=== PATIENT | male | born 1965 | race Caucasian/White ===

== ENCOUNTER 2018-01-02 06:16 | Emergency (ER) | payer OTHER ==
--- NOTE | 2018-01-02 08:21 | ER ---
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 pt stated he has tried multiple OTC medications with no relief. pt took Aleve at 0515 this morning. Transition of care: patient was not received from another setting of care. Onset of symptoms is unknown. Care prior to arrival: None. 06:30 Method Of Arrival: Ambulatory ak1 06:30 Acuity: ASHLEY 4 ak1 Triage Assessment: 06:33 General: Appears in no apparent distress. Behavior is cooperative. Pain: Complains of ak1 pain in throat and body aches. EENT: Nares are clear. Neuro: No deficits noted. Cardiovascular: No deficits noted. Respiratory: No deficits noted. GI: No signs and/or symptoms were reported involving the gastrointestinal system. : No signs and/or symptoms were reported regarding the genitourinary system. Derm: No signs and/or symptoms reported regarding the dermatologic system. 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 Historical: - Allergies: 06:32 Latex, Natural Rubber; ak1 - Home Meds: 06:32 victoza daily [Active]; metformin 1,000 mg Oral tab 1 tab 2 times per day [Active]; ak1 - PMHx: 06:32 Diabetes - NIDDM; ak1 06:33 Hypertension; ak1 - PSHx: 06:32 Tonsillectomy; ak1 - Immunization history:: Adult Immunizations unknown. - Social history:: Smoking status: Patient/guardian denies using tobacco. Screenin:35 Abuse screen: Denies threats or abuse. Denies injuries from another. Nutritional ak1 screening: No deficits noted. Tuberculosis screening: No symptoms or risk factors identified. Fall Risk None identified. Assessment: 06:35 Respiratory: Airway is patent Respiratory effort is even, Breath sounds are clear. ak1 06:35 EENT: Throat with gag reflex present. ak1 06:35 Reassessment: Patient appears in no apparent distress at this time. No changes from ak1 previously documented assessment. see triage assessment. 07:20 Reassessment: Patient appears in no apparent distress at this time. Patient and/or family updated on plan of care and expected duration. Pain level reassessed. Patient is alert, oriented x 3, equal unlabored respirations, skin warm/dry/pink. General: Appears in no apparent distress. comfortable, Behavior is calm, cooperative, appropriate for age. Pain: Complains of pain in GENERALIZED BODY ACHES Pain currently is 8 out of 10 on a pain scale. Neuro: Level of Consciousness is awake, alert, obeys commands, Oriented to person, place, time, situation. Cardiovascular: Heart tones S1 S2 present Pulses are all present. Edema is absent. GI: No signs and/or symptoms were reported involving the gastrointestinal system. Abdomen is round non-distended, obese, Bowel sounds present X 4 quads. : No signs and/or symptoms were reported regarding the genitourinary system. EENT: Nares are clear PT [id number] CONGESTION. Throat is clear. Derm: Skin is pink, warm \T\ dry. Musculoskeletal: Circulation, motion, and sensation intact. Capillary refill < 3 seconds, in bilateral fingers. toes. PT REPORTS GENERALIZED BODY ACHES. 08:51 Reassessment: Patient appears in no apparent distress at this time. No changes from previously documented assessment. Patient and/or family updated on plan of care and expected duration. Pain level reassessed. Patient is alert, oriented x 3, equal unlabored respirations, skin warm/dry/pink. Vital Signs: 06:33 BP 145 / 92; Pulse 99; Resp 20; Temp 98.5(O); Pulse Ox 97% on R/A; Weight 102.06 kg ak1 (R); Height 5 ft. 6 in. (167.64 cm) (R); Pain 10/10; 07:20 BP 136 / 81; Pulse 96; Pulse Ox 99% on R/A; ch 08:51 BP 118 / 76; Pulse 80; Resp 16; Temp 98.3; Pulse Ox 99% on R/A; Pain 6/10; ch 06:33 Body Mass Index 36.32 (102.06 kg, 167.64 cm) [facility] ED Course: 06:20 Patient arrived in ED. es 06:21 Jian Welch MD is Private Physician. es 06:27 Chay Strickland PA is PHCP. jr8 06:27 Misbah Cee MD is Attending Physician. jr8 06:30 Mattie Lewis, [place] is Primary Nurse. ak1 06:31 Triage completed. ak1 06:33 Arm band placed on Patient placed in an exam room, on a stretcher, on pulse oximetry, ak1 Patient notified of wait time. 06:35 Patient has correct armband on for positive identification. Bed in low position. Call ak1 light in reach. Side rails up X 1. Pulse ox on. NIBP on. 06:59 Primary Nurse role handed off by Mattie Lewis, [place] ch 06:59 Barbara Dumont, [place] is Primary Nurse. ch 07:20 No apparent distress. Resting quietly. ch 07:20 No provider procedures requiring assistance completed. Patient did not have IV access ch during this emergency room visit. 07:25 Influenza Screen (a \T\ B) Sent. ch 07:50 X-ray completed. Portable x-ray completed in exam room. Patient tolerated procedure jb2 well. 08:16 XRAY Chest (1 view) In Process Unspecified. EDMS 08:20 Jian Welch MD is Referral Physician. jr8 Administered Medications: No medications were administered Point of Care Testing: Blood Glucose: 07:20 Blood Glucose: 279 mg/dL; Ranges: Outcome: 08:20 Discharge ordered by . jr8 08:50 Discharged to home ambulatory, with family. 08:50 Condition: stable 08:50 Discharge instructions given to patient, Instructed on discharge instructions, follow up and referral plans. no drinking with medication, no driving heavy equipment, medication usage, Demonstrated understanding of instructions, follow-up care, medications, Prescriptions given X 3. 08:51 Patient left the ED. ch Signatures: Dispatcher [employer] EDMS Barbara Dumont, [place] RN Criss Doshi Jesse jb2 Chay Strickland PA PA jr8 Mattie Lewis, [place] RN ak1
--- NOTE | 2018-01-02 08:21 | EDPHYS ---
Physician Documentation [facility] Name: Eddie Thomas Age: 52 yrs Sex: Male : 1965 Arrival Date: 01/02/2018 Time: 06:20 Bed 6 Private MD: Jian Welch ED Physician Misbah Cee HPI: 01/02 07:59 This 52 yrs old Male presents to ER via Ambulatory with complaints of Fever, jr8 Sore Throat, bODY ACHE, Sinus Congestion. 07:59 The patient reports fever, not measured (subjective). Onset: The symptoms/episode jr8 began/occurred gradually, 3 week(s) ago. Modifying factors: there are no obvious modifying factors. Associated signs and symptoms: Pertinent positives: chills, cough, shortness of breath, sore throat. Severity of symptoms: At their worst the symptoms were mild in the emergency department the symptoms are unchanged. The patient has not experienced similar symptoms in the past. The patient has not recently seen a physician. Hast tried OTC medication with some relief but keeps coming back . Historical: - Allergies: 06:32 Latex, Natural Rubber; ak1 - Home Meds: 06:32 victoza daily [Active]; metformin 1,000 mg Oral tab 1 tab 2 times per day [Active]; ak1 - PMHx: 06:32 Diabetes - NIDDM; ak1 06:33 Hypertension; ak1 - PSHx: 06:32 Tonsillectomy; ak1 - Immunization history:: Adult Immunizations unknown. - Social history:: Smoking status: Patient/guardian denies using tobacco. ROS: 07:59 Eyes: Negative for injury, pain, redness, and discharge, Neck: Negative for injury, jr8 pain, and swelling, Cardiovascular: Negative for chest pain, palpitations, and edema, Abdomen/GI: Negative for abdominal pain, nausea, vomiting, diarrhea, and constipation, Back: Negative for injury and pain, MS/Extremity: Negative for injury and deformity, Skin: Negative for injury, rash, and discoloration, Neuro: Negative for headache, weakness, numbness, tingling, and seizure. 07:59 Constitutional: Positive for body aches, chills, fever. 07:59 ENT: Positive for sore throat, Negative for drainage from ear(s), ear pain, nasal discharge, rhinorrhea, sinus congestion, sinus pain. 07:59 Respiratory: Positive for cough, Negative for dyspnea on exertion, shortness of breath, sputum production, wheezing. Exam: 07:59 Eyes: Pupils equal round and reactive to light, extra-ocular motions intact. Lids and jr8 lashes normal. Conjunctiva and sclera are non-icteric and not injected. Cornea within normal limits. Periorbital areas with no swelling, redness, or edema. ENT: Nares patent. No nasal discharge, no septal abnormalities noted. Tympanic membranes are normal and external auditory canals are clear. Oropharynx with no redness, swelling, or masses, exudates, or evidence of obstruction, uvula midline. Mucous membranes moist. Neck: Trachea midline, no thyromegaly or masses palpated, and no cervical lymphadenopathy. Supple, full range of motion without nuchal rigidity, or vertebral point tenderness. No Meningismus. Cardiovascular: Regular rate and rhythm with a normal S1 and S2. No gallops, murmurs, or rubs. Normal PMI, no JVD. No pulse deficits. Respiratory: Lungs have equal breath sounds bilaterally, clear to auscultation and percussion. No rales, rhonchi or wheezes noted. No increased work of breathing, no retractions or nasal flaring. Abdomen/GI: Soft, non-tender, with normal bowel sounds. No distension or tympany. No guarding or rebound. No evidence of tenderness throughout. Back: No spinal tenderness. No costovertebral tenderness. Full range of motion. Skin: Warm, dry with normal turgor. Normal color with no rashes, no lesions, and no evidence of cellulitis. MS/ Extremity: Pulses equal, no cyanosis. Neurovascular intact. Full, normal range of motion. Neuro: Awake and alert, GCS 15, oriented to person, place, time, and situation. Cranial nerves II-XII grossly intact. Motor strength 5/5 in all extremities. Sensory grossly intact. Cerebellar exam normal. Normal gait. Vital Signs: 06:33 BP 145 / 92; Pulse 99; Resp 20; Temp 98.5(O); Pulse Ox 97% on R/A; Weight 102.06 kg ak1 (R); Height 5 ft. 6 in. (167.64 cm) (R); Pain 10/10; 07:20 BP 136 / 81; Pulse 96; Pulse Ox 99% on R/A; ch 08:51 BP 118 / 76; Pulse 80; Resp 16; Temp 98.3; Pulse Ox 99% on R/A; Pain 6/10; ch 06:33 Body Mass Index 36.32 (102.06 kg, 167.64 cm) ak1 MDM: 06:27 Patient medically screened. jr8 08:19 Data reviewed: vital signs, nurses notes, lab test result(s), radiologic studies, plain jr8 films, and as a result, I will discharge patient. Data interpreted: Pulse oximetry: on room air is 99 %. Interpretation: normal. Counseling: I had a detailed discussion with the patient and/or guardian regarding: the historical points, exam findings, and any diagnostic results supporting the discharge/admit diagnosis, lab results, radiology results, the need for outpatient follow up, a family practitioner, to return to the emergency department if symptoms worsen or persist or if there are any questions or concerns that arise at home. 01/02 06:55 Order name: Influenza Screen (a \T\ B); Complete Time: 07:43 jr8 01/02 06:55 Order name: XRAY Chest (1 view) jr8 01/02 06:56 Order name: Glucose Level; Complete Time: 07:25 jr8 Administered Medications: No medications were administered Point of Care Testing: Blood Glucose: 07:20 Blood Glucose: 279 mg/dL; ch Ranges: Critical Glucose Levels:Adult <50 mg/dl or >400 mg/dl <40 mg/dl or >180 mg/dl Disposition: 01/03 00:21 Co-signature as Attending Physician, Misbah Cee MD I agree with the assessment and tw4 plan of care. Disposition: 01/02/18 08:20 Discharged to Home. Impression: Acute bronchitis, Acute pharyngitis. - Condition is Stable. - Discharge Instructions: Acute Bronchitis, Pharyngitis. - Prescriptions for Prednisone 20 mg Oral Tablet - take 1 tablet by ORAL route once daily for 5 days; 5 tablet. Zithromax Z- Aquiles 250 mg Oral Tablet - take 1 tablet by ORAL route as directed for 5 days Day 1 - take two (2) tablets one time. Day 2, 3, 4 , 5 take one (1) tablet once daily.; 6 tablet. Tessalon Perles 100 mg Oral Capsule - take 1 capsule by ORAL route every 8 hours As needed; 15 capsule. - Medication Reconciliation Form, Thank You Letter, Antibiotic Education, Prescription Opioid Use form. - Work release form (01/02/18 08:51). - Follow up: Jian Welch MD; When: 1 week; Reason: Recheck today's complaints, Continuance of care, Re-evaluation by your physician. - Problem is new. - Symptoms have improved. Signatures: Dispatcher [employer] Barbara Cline, RN RN Chay Strickland PA PA jr8 Mattie Lewis RN RN ak1 Misbah Cee MD MD tw4
[2018-01-02 08:55] VITALS: TEMP 98.5
[2018-01-02 08:56] VITALS: BP 136/81; O2SAT 99
--- NOTE | 2018-01-02 09:15 | RAD REPORT ---
EXAM DESCRIPTION: Micki Single View01/02/2018 8:15 am CLINICAL HISTORY: Cough COMPARISON: 2016 FINDINGS: The lungs appear clear of acute infiltrate. The heart is normal size IMPRESSION: No acute abnormalities displayed
== END 2018-01-02 08:51 | disposition home or self-care (01) ==
LOC: ER 06:16
DX: J20.9 Acute bronchitis, unspecified (principal); J02.9 Acute pharyngitis, unspecified; I10 Essential (primary) hypertension; E11.9 Type 2 diabetes mellitus without complications; Z91.040 Latex allergy status; Z91.048 Other nonmedicinal substance allergy status
CPT/HCPCS: 71045; 82962; 87804; 99284

== ENCOUNTER 2019-10-17 05:13 | Emergency (ER) | payer OTHER ==
[2019-10-17] MEDS ORDERED: NA CHLORIDE 0.9% 1,000 ML ONE (06:09)
[2019-10-17] MEDS ORDERED: ONDANSETRON 4 MG/2 ML VIAL ONE (06:09)
[2019-10-17 06:26] LABS: Absolute Lymphocytes (CBC) 2.5 K/uL (0.7-4.9); Basophils % 0.9 % (0-1.3); Hematocrit 44.8 % (39.6-49.0); Lymphocytes % 46.6 % (15.3-44.8); MPV 8.3 fL (7.6-11.3); RBC Red Blood Cell Count 5.01 M/uL (4.33-5.43)
[2019-10-17 07:10] LABS: ALT/SGPT 34 U/L (12-78); AST/SGOT 21 U/L (15-37); Albumin 3.3 g/dL (3.4-5.0); Alkaline Phosphatase 67 U/L (45-117); BUN Blood Urea Nitrogen 9 mg/dL (7-18); Bicarbonate 26 mmol/L (21-32); Bilirubin Direct < 0.1 mg/dL (0-0.2); Bilirubin Total 0.1 mg/dL (0.2-1.0); Glucose Level 211 mg/dL (74-106); Lipase 538 U/L (73-393); Protein, Total 6.4 g/dL (6.4-8.2); Sodium Level 139 mmol/L (136-145)
[2019-10-17 07:11] LABS: Potassium 4.1 mmol/L (3.5-5.1)
--- NOTE | 2019-10-17 08:01 | EDPHYS ---
Physician Documentation [facility] Name: Eddie Thomas Age: 54 yrs Sex: Male : 1965 Arrival Date: 10/17/2019 Time: 05:16 Bed 20 Private MD: ED Physician Misbah Cee HPI: 10/17 06:14 This 54 yrs old Male presents to ER via Ambulatory with complaints of Chills, jmm Nausea. 06:14 The patient presents to the emergency department with nausea, diarrhea. Onset: The jmm symptoms/episode began/occurred 1 day(s) ago. Possible causes: unknown. The symptoms are aggravated by nothing. Associated signs and symptoms: Pertinent positives: cough, Pertinent negatives: abdominal pain. This is a 54 year old male with a history of dm, htn, that presents to the ED with complaints of cough, diarrhea, fatigue, beginning yesterday. Denies vomiting, abdominal pain, sore throat. . Historical: - Allergies: 05:16 Latex, Natural Rubber; jb4 - Home Meds: 05:16 metformin 1,000 mg Oral tab 1 tab 2 times per day [Active]; jb4 - PMHx: 05:16 Diabetes - NIDDM; Hypertension; ADD/ADHD; jb4 - PSHx: 05:16 Tonsillectomy; jb4 - Immunization history:: Adult Immunizations up to date. - Social history:: Smoking status: Patient reports use of chewing tobacco. Patient uses alcohol, but reports only rare drinking. Patient/guardian denies using street drugs. - Ebola Screening: : No symptoms or risks identified at this time. ROS: 06:14 Cardiovascular: Negative for chest pain, palpitations, and edema. jmm 06:14 Back: Negative for injury and pain, MS/Extremity: Negative for injury and deformity, Skin: Negative for injury, rash, and discoloration, Neuro: Negative for headache, weakness, numbness, tingling, and seizure. 06:14 Constitutional: Positive for body aches, chills, fever. 06:14 Respiratory: Positive for cough. 06:14 Abdomen/GI: Positive for nausea, diarrhea. 06:14 All other systems are negative. Exam: 06:14 Constitutional: This is a well developed, well nourished patient who is awake, alert, jmm and in no acute distress. Head/Face: atraumatic. Eyes: EOMI, no conjunctival erythema appreciated ENT: Moist Mucus Membranes Neck: Trachea midline, Supple Chest/axilla: Normal chest wall appearance and motion. Cardiovascular: Regular rate and rhythm. No edema appreciated Respiratory: Normal respirations, no respiratory distress appreciated 06:14 Back: Normal ROM Skin: General appearance color normal MS/ Extremity: Moves all extremities, no obvious deformities appreciated, no edema noted to the lower extremities Neuro: Awake and alert, normal gait Psych: Behavior is normal, Mood is normal, Patient is cooperative and pleasant 06:14 Abdomen/GI: Inspection: obese Bowel sounds: normal, Palpation: abdomen is soft and non-tender, in all quadrants. Vital Signs: 05:16 BP 159 / 99; Pulse 83; Resp 16; Temp 98.1(O); Pulse Ox 98% on R/A; Weight 99.79 kg (R); jb4 Height 5 ft. 6 in. (167.64 cm) (R); Pain 8/10; 06:30 BP 131 / 87; Pulse 70; Resp 16; Pulse Ox 96% on R/A; jb4 07:22 BP 141 / 95; Pulse 76; Resp 17; Pulse Ox 98% on R/A; tw2 05:16 Body Mass Index 35.51 (99.79 kg, 167.64 cm) jb4 MDM: 06:05 Patient medically screened. [facility] 07:56 Data reviewed: vital signs, nurses notes. Counseling: I had a detailed discussion with rocio the patient and/or guardian regarding: the historical points, exam findings, and any diagnostic results supporting the discharge/admit diagnosis, lab results, the need for outpatient follow up, to return to the emergency department if symptoms worsen or persist or if there are any questions or concerns that arise at home. ED course: Patient is alert and non toxic in appearance. Patient tolerates PO. No abdominal pain. I do not suspect acute pancreatitis. Patient advised to go on a clear liquid diet and follow up with Dr. Welch for reevaluation. patient otherwise given strict return precautions. Patient understood and agrees with the plan of care. . 10/17 05:27 Order name: Basic Metabolic Panel; Complete Time: 07:14 tw4 10/17 05:27 Order name: CBC with Diff; Complete Time: 06:28 tw4 10/17 05:27 Order name: Creatinine for Radiology; Complete Time: 07:02 [facility] 10/17 05:27 Order name: Hepatic Function; Complete Time: 07:14 [facility] 10/17 05:27 Order name: Lipase; Complete Time: 07:14 10/17 05:30 Order name: Flu; Complete Time: 06:01 10/17 05:27 Order name: IV Saline Lock; Complete Time: 06:26 10/17 05:27 Order name: Labs collected and sent; Complete Time: 06:26 [facility] 10/17 06:05 Order name: Urine Dipstick-Ancillary (obtain specimen); Complete Time: 07:45 [facility] 10/17 07:30 Order name: Misc. Order: need urine for dispo; Complete Time: 07:45 [facility] 10/17 07:57 Order name: Urine Dipstick--Ancillary (enter results) bd Administered Medications: 06:12 Drug: NS 0.9% 1000 ml Route: IV; Rate: 1 bolus; Site: right antecubital; [facility] 07:45 Follow up: Response: No adverse reaction; IV Status: Completed infusion; IV Intake: tw2 1000ml 06:13 Drug: Zofran 4 mg Route: IVP; Site: right antecubital; 4 06:38 Follow up: Response: No adverse reaction; Nausea is decreased [facility] Disposition: 10/18 08:07 Co-signature as Attending Physician, Misbah Cee MD I agree with the assessment and [facility] plan of care. Disposition: 10/17/19 08:00 Discharged to Home. Impression: Diarrhea, unspecified, Other viral infections of unspecified site. - Condition is Stable. - Discharge Instructions: Food Choices to Help Relieve Diarrhea, Adult, Diarrhea, Adult. - Prescriptions for Zofran ODT 4 mg Oral tablet,disintegrating - place 1 tablet by TRANSLINGUAL route every 4-6 hours; 20 tablet. - Medication Reconciliation Form, Thank You Letter, Antibiotic Education, Prescription Opioid Use, Work release form form. - Follow up: Private Physician; When: 2 - 3 days; Reason: Recheck today's complaints, Continuance of care, Re-evaluation by your physician. Signatures: Dispatcher [employer] Lito Lopez PA PA jmm Wise, Tara, RN RN tw2 Ahmet Mandujano RN RN jb4 Misbah Cee MD MD tw4 Corrections: (The following items were deleted from the chart) 10/17 08:23 08:00 10/17/2019 08:00 Discharged to Home. Impression: Diarrhea, unspecified; Other tw2 viral infections of unspecified site. Condition is Stable. Forms are Work release form, Medication Reconciliation Form, Thank You Letter, Antibiotic Education, Prescription Opioid Use. Follow up: Private Physician; When: 2 - 3 days; Reason: Recheck today's complaints, Continuance of care, Re-evaluation by your physician. rocio
--- NOTE | 2019-10-17 08:01 | ER ---
Nurse's Notes [facility] Name: Eddie Thomas Age: 54 yrs Sex: Male : 1965 Arrival Date: 10/17/2019 Time: 05:16 Bed 20 Private MD: Diagnosis: Diarrhea, unspecified;Other viral infections of unspecified site Presentation: 10/17 05:16 Presenting complaint: Patient states: I feel like I have fever, I have body aches and jb4 chills. Yesterday I began having these symptoms an now I also feel weak and nauseated. 05:16 Transition of care: patient was not received from another setting of care. Onset of jb4 symptoms was October 16, 2019. Risk Assessment: Do you want to hurt yourself or someone else? Patient reports no desire to harm self or others. Initial Sepsis Screen: Does the patient meet any 2 criteria? No. Patient's initial sepsis screen is negative. Does the patient have a suspected source of infection? No. Patient's initial sepsis screen is negative. Care prior to arrival: None. 05:16 Method Of Arrival: Ambulatory jb4 05:16 Acuity: ASHLEY 4 jb4 Historical: - Allergies: 05:16 Latex, Natural Rubber; jb4 - Home Meds: 05:16 metformin 1,000 mg Oral tab 1 tab 2 times per day [Active]; jb4 - PMHx: 05:16 Diabetes - NIDDM; Hypertension; ADD/ADHD; jb4 - PSHx: 05:16 Tonsillectomy; jb4 - Immunization history:: Adult Immunizations up to date. - Social history:: Smoking status: Patient reports use of chewing tobacco. Patient uses alcohol, but reports only rare drinking. Patient/guardian denies using street drugs. - Ebola Screening: : No symptoms or risks identified at this time. Screenin:16 Abuse screen: Denies threats or abuse. Nutritional screening: No deficits noted. jb4 Tuberculosis screening: No symptoms or risk factors identified. Fall Risk None identified. Assessment: 05:16 General: Appears in no apparent distress. uncomfortable, Behavior is calm, cooperative, jb4 appropriate for age. Pain: Complains of pain in generalized body aches Pain does not radiate. Pain currently is 8 out of 10 on a pain scale. Quality of pain is described as aching. Neuro: Level of Consciousness is awake, alert, obeys commands, Oriented to person, place, time, situation. Cardiovascular: Patient's skin is warm and dry. Respiratory: Reports cough that is non-productive, Airway is patent Respiratory effort is even, unlabored, Respiratory pattern is regular, symmetrical. GI: Abdomen is non-distended, obese, Reports nausea. : No signs and/or symptoms were reported regarding the genitourinary system. EENT: No signs and/or symptoms were reported regarding the EENT system. Derm: Skin is intact, Skin is pink, warm \T\ dry. Musculoskeletal: Circulation, motion, and sensation intact. Range of motion: intact in all extremities. 06:40 Reassessment: Patient appears in no apparent distress at this time. Patient and/or jb4 family updated on plan of care and expected duration. Pain level reassessed. Patient is alert, oriented x 3, equal unlabored respirations, skin warm/dry/pink. Patient states feeling better. 07:24 Reassessment: Patient appears in no apparent distress at this time. Patient and/or tw2 family updated on plan of care and expected duration. Pain level reassessed. Patient is alert, oriented x 3, equal unlabored respirations, skin warm/dry/pink. 08:23 Reassessment: Patient appears in no apparent distress at this time. Patient and/or tw2 family updated on plan of care and expected duration. Pain level reassessed. Patient is alert, oriented x 3, equal unlabored respirations, skin warm/dry/pink. Patient states feeling better. Vital Signs: 05:16 BP 159 / 99; Pulse 83; Resp 16; Temp 98.1(O); Pulse Ox 98% on R/A; Weight 99.79 kg (R); jb4 Height 5 ft. 6 in. (167.64 cm) (R); Pain 8/10; 06:30 BP 131 / 87; Pulse 70; Resp 16; Pulse Ox 96% on R/A; jb4 07:22 BP 141 / 95; Pulse 76; Resp 17; Pulse Ox 98% on R/A; tw2 05:16 Body Mass Index 35.51 (99.79 kg, 167.64 cm) jb4 ED Course: 05:16 Patient arrived in ED. ds1 05:16 Arm band placed on left wrist. jb4 05:16 Patient has correct armband on for positive identification. Bed in low position. Call jb light in reach. Side rails up X 1. Pulse ox on. NIBP on. 05:23 Ahmet Mandujano, RN is Primary Nurse. jb4 05:25 Triage completed. jb4 06:05 Lito Landeros PA is PHCP. [facility] 06:05 Misbah Cee MD is Attending Physician. [facility] 06:26 Basic Metabolic Panel Sent. jb4 06:29 Creatinine for Radiology Sent. jb4 06:29 Hepatic Function Sent. jb4 06:29 Lipase Sent. jb4 07:22 Primary Nurse role handed off by Ahmet Mandujano, RN tw2 07:22 Hope Fofana, [place] is Primary Nurse. tw2 08:22 No provider procedures requiring assistance completed. IV discontinued, intact, tw2 bleeding controlled, No redness/swelling at site. Pressure dressing applied, discontinued 20 g RIGHT AC. Administered Medications: 06:12 Drug: NS 0.9% 1000 ml Route: IV; Rate: 1 bolus; Site: right antecubital; jb4 07:45 Follow up: Response: No adverse reaction; IV Status: Completed infusion; IV Intake: tw2 1000ml 06:13 Drug: Zofran 4 mg Route: IVP; Site: right antecubital; jb4 06:38 Follow up: Response: No adverse reaction; Nausea is decreased jb4 Intake: 07:45 IV: 1000ml; Total: 1000ml. tw2 Outcome: 08:00 Discharge ordered by . [facility] 08:22 Discharged to home ambulatory. tw2 08:22 Condition: stable 08:22 Discharge instructions given to patient, Instructed on discharge instructions, follow up and referral plans. medication usage, Demonstrated understanding of instructions, follow-up care, medications, Prescriptions given X 1. 08:23 Patient left the ED. tw2 Signatures: Lito Landeros PA PA jmm Sanford, Demi ds1 Hope Fofana RN RN tw2 Ahmet Mandujano, [place] RN jb4
[2019-10-17 08:33] LABS: Urine Blood NEGATIVE (NEG); Urine Glucose 3+ (NEG); Urine Protein TRACE (NEG); Urine Specific Gravity >1.030 (1.005-1.030); Urine pH 5.5 (5.0-7.0)
[2019-10-17 17:55] VITALS: TEMP 98.1
[2019-10-17 17:58] VITALS: BP 141/95; O2SAT 98
== END 2019-10-17 08:23 | disposition home or self-care (01) ==
LOC: ER 05:13
DX: B34.8 Other viral infections of unspecified site (principal); I10 Essential (primary) hypertension; E11.9 Type 2 diabetes mellitus without complications; F17.220 Nicotine dependence, chewing tobacco, uncomplicated; Z91.040 Latex allergy status; Z91.048 Other nonmedicinal substance allergy status
CPT/HCPCS: 96361; 85025; 80048; 36415; 80076; 81003; 83690; 87804 ×2; 96374; 99284; J7030; J2405

== ENCOUNTER 2021-04-03 20:56 | Emergency (ER) | payer OTHER ==
--- OUTSIDE RECORDS SUMMARY | 2021-04-03 20:59 | XMS REPORT | Continuity of Care Document ---
:1965 Author Organization [facility] t Address [address] [place] [address] Care Team Providers Name Role Phone Wilmar Berkowitz Attending Clinician Problems This patient has no known problems. Allergies, Adverse Reactions, Alerts This patient has no known allergies or adverse reactions. Medications This patient has no known medications. Procedures This patient has no known procedures. Encounters Start End Encounter Admission Attending Care Care Encounter Source Date/Time Date/Time Type Type Clinicians Facility Department ID 2020-10-12 2020-10-12 Emergency Nancy [facility] [id number] 13:36:00 15:41:00 Zack Suarez [id number] [place] [id number] [place] [id number] Results This patient has no known results.
[2021-04-03 23:34] LABS: Absolute Lymphocytes (CBC) 3.1 K/uL (0.7-4.9); Basophils % 0.8 % (0-1.3); Hematocrit 41.9 % (39.6-49.0); Lymphocytes % 46.1 % (15.3-44.8); MPV 8.8 fL (7.6-11.3); RBC Red Blood Cell Count 4.91 M/uL (4.33-5.43)
[2021-04-03] MEDS ORDERED: ONDANSETRON 4 MG/2 ML VIAL ONE (23:50)
[2021-04-03] MEDS ORDERED: MORPHINE 4 MG/ML SYR ONE (23:50)
[2021-04-03 23:56] LABS: BUN Blood Urea Nitrogen 15 mg/dL (7-18); Bicarbonate 29 mmol/L (21-32); Glucose Level 267 mg/dL (74-106); Potassium 3.9 mmol/L (3.5-5.1); Sodium Level 136 mmol/L (136-145)
--- NOTE | 2021-04-04 01:14 | ER ---
Nurse's Notes [facility] Name: Eddie Thomas Age: 55 yrs Sex: Male : 1965 Arrival Date: 04/03/2021 Time: 21:07 Bed 27 Private MD: Diagnosis: Acute mastoiditis Presentation: 04/03 21:10 Chief complaint: Patient states: For about two days pt states has been having a vg1 headache off and on and Left ear pain, states ear feels swollen. Also states at times the pain will radiate to Left eye. Coronavirus screen: Client denies travel out of the [place] in the last 14 days. Ebola Screen: Patient negative for fever greater than or equal to 101.5 degrees Fahrenheit, and additional compatible Ebola Virus Disease symptoms. Initial Sepsis Screen: Does the patient meet any 2 criteria? No. Patient's initial sepsis screen is negative. Does the patient have a suspected source of infection? No. Patient's initial sepsis screen is negative. Risk Assessment: Do you want to hurt yourself or someone else? Patient reports no desire to harm self or others. Onset of symptoms was April 01, 2021. 21:10 Method Of Arrival: Ambulatory vg1 21:10 Acuity: ASHLEY 4 vg1 Triage Assessment: 21:12 General: Appears in no apparent distress. uncomfortable, Behavior is calm, cooperative. vg1 Pain: Complains of pain in left ear Pain currently is 10 out of 10 on a pain scale. EENT: Ear canal clear on left ear. Historical: - Allergies: 21:12 Latex, Natural Rubber; vg1 - PMHx: 21:12 Diabetes - NIDDM; vg1 - Immunization history:: Adult Immunizations up to date, Client reports receiving the 2nd dose of the Covid vaccine. - Social history:: Smoking status: Patient denies any tobacco usage or history of. Screenin:37 Abuse screen: Denies threats or abuse. Denies injuries from another. Nutritional zb screening: No deficits noted. Tuberculosis screening: No symptoms or risk factors identified. Fall Risk None identified. Assessment: 23:45 General: Appears in no apparent distress. uncomfortable, Behavior is calm, cooperative. zb Pain: Complains of pain in left anterior aspect of neck and left ear Pain currently is 10 out of 10 on a pain scale. Quality of pain is described as aching, tender, Pain began 2-3 days ago. Neuro: Level of Consciousness is awake, alert. Cardiovascular: Patient's skin is warm and dry. Respiratory: Airway is patent Respiratory effort is even, unlabored. GI: No deficits noted. Derm: Skin is intact, is healthy with good turgor. Musculoskeletal: Swelling present in left jaw. 04/04 01:21 Reassessment: Patient appears in no apparent distress at this time. Patient and/or em family updated on plan of care and expected duration. Pain level reassessed. Patient is alert, oriented x 3, equal unlabored respirations, skin warm/dry/pink. Vital Signs: 04/03 21:10 BP 156 / 95; Pulse 69; Resp 16; Temp 97.9; Pulse Ox 99% ; Weight 93.44 kg; Height 5 ft. vg1 6 in. (167.64 cm); Pain 10; 23:46 BP 141 / 90; Pulse 62; Resp 16; Pulse Ox 96% on R/A; zb 04/04 01:21 BP 139 / 81; Pulse 62; Resp 16; Pulse Ox 100% on R/A; Pain 1/10; em 04/03 21:10 Body Mass Index 33.25 (93.44 kg, 167.64 cm) vg1 ED Course: 04/03 21:07 Patient arrived in ED. am4 21:12 Triage completed. vg1 21:12 Arm band placed on Patient placed in waiting room, Patient notified of wait time. vg1 22:10 Lito Landeros PA is PHCP. [facility] 22:10 Melchor Pagan MD is Attending Physician. m 22:37 Teresita Joseph, [place] is Primary Nurse. zb 22:37 Patient has correct armband on for positive identification. Pulse ox on. NIBP on. Door zb closed. Noise minimized. 23:45 Initial lab(s) drawn, by me, sent to lab. Inserted saline lock: 20 gauge in right zb antecubital area, using aseptic technique. Blood collected. 04/04 00:24 CT Soft Tissue Neck W/contr In Process Unspecified. EDMS 00:24 CT Head Brain wo Cont In Process Unspecified. EDMS 01:13 Sue Farmer MD is Referral Physician. rocio Administered Medications: 04/03 23:32 Drug: morphine 4 mg {Note: RASS +0.} Route: IVP; Site: right antecubital; 04/04 01:27 Follow up: Response: No adverse reaction; Marked relief of symptoms; Pain is decreased em 04/03 23:32 Drug: Zofran (Ondansetron) 4 mg Route: IVP; Site: right antecubital; 04/04 01:27 Follow up: Response: No adverse reaction em 01:27 Drug: Rocephin (cefTRIAXone) 2 grams Route: IV; Rate: calculated rate; Site: right em antecubital; 01:39 Follow up: Response: No adverse reaction; IV Status: Completed infusion; IV Intake: 20mlem Intake: :39 IV: 20ml; Total: 20ml. em Outcome: 01:14 Discharge ordered by MD. chan 01:39 Patient left the ED. em Signatures: Dispatcher [employer] EDLito Raman PA PA jmm Munoz, Edgar, RN RN Aria Causey RN RN vg1 Brown, Zipporah, RN RN zb Martinez, Ashley am4 Corrections: (The following items were deleted from the chart) 04/03 21:13 21:12 PMHx: ADD/ADHD; vg1 vg1 21:13 21:12 PMHx: Hypertension; vg1 vg1
--- NOTE | 2021-04-04 01:14 | EDPHYS ---
Physician Documentation [facility] Name: Eddie Thomas Age: 55 yrs Sex: Male : 1965 Arrival Date: 04/03/2021 Time: 21:07 Bed 27 Private MD: ED Physician Melchor Pagan HPI: 04/03 23:03 This 55 yrs old Male presents to ER via Ambulatory with complaints of Ear jmm Pain. 23:03 The patient presents with pain. Onset: The symptoms/episode began/occurred gradually, 1 jmm day(s) ago. Modifying factors: The symptoms are alleviated by nothing, the symptoms are aggravated by nothing. Associated signs and symptoms: Pertinent negatives: fever. The patient has not experienced similar symptoms in the past. This is a 55 year old male with a history of DM that presents to the ED with complaints of left earache beginning approx 1 days ago. Patient states pain worsening when attempting to eat. Denies fever. . Historical: - Allergies: 21:12 Latex, Natural Rubber; vg1 - PMHx: 21:12 Diabetes - NIDDM; vg1 - Immunization history:: Adult Immunizations up to date, Client reports receiving the 2nd dose of the Covid vaccine. - Social history:: Smoking status: Patient denies any tobacco usage or history of. ROS: 23:03 Constitutional: Negative for fever, chills, and weight loss, Cardiovascular: Negative jmm for chest pain, palpitations, and edema, Respiratory: Negative for shortness of breath, cough, wheezing, and pleuritic chest pain. 23:03 ENT: Positive for ear pain. 23:03 All other systems are negative. Exam: 23:03 Constitutional: This is a well developed, well nourished patient who is awake, alert, jmm and in no acute distress. Head/Face: atraumatic. Eyes: EOMI, no conjunctival erythema appreciated 23:03 Chest/axilla: Normal chest wall appearance and motion. Cardiovascular: Regular rate and rhythm. No edema appreciated Respiratory: Normal respirations, no respiratory distress appreciated Abdomen/GI: Non distended, soft Back: Normal ROM Skin: General appearance color normal MS/ Extremity: Moves all extremities, no obvious deformities appreciated, no edema noted to the lower extremities Neuro: Awake and alert, normal gait Psych: Behavior is normal, Mood is normal, Patient is cooperative and pleasant 23:03 ENT: TM's: are normal, Posterior pharynx: is normal. 23:03 Neck: External neck: tenderness, that is moderate, of the left anterior aspect of neck. Vital Signs: 21:10 BP 156 / 95; Pulse 69; Resp 16; Temp 97.9; Pulse Ox 99% ; Weight 93.44 kg; Height 5 ft. vg1 6 in. (167.64 cm); Pain 10; 23:46 BP 141 / 90; Pulse 62; Resp 16; Pulse Ox 96% on R/A; zb 04/04 01:21 BP 139 / 81; Pulse 62; Resp 16; Pulse Ox 100% on R/A; Pain /; em 04/03 21:10 Body Mass Index 33.25 (93.44 kg, 167.64 cm) vg1 MDM: 04/03 23:03 Patient medically screened. [facility] 04/04 01:12 Data reviewed: vital signs, nurses notes. Counseling: I had a detailed discussion with [facility] the patient and/or guardian regarding: the historical points, exam findings, and any diagnostic results supporting the discharge/admit diagnosis, lab results, radiology results, the need to transfer to another facility, to return to the emergency department if symptoms worsen or persist or if there are any questions or concerns that arise at home. Refusal of service: The patient/guardian displays adequate decision making capability and despite a detailed discussion of alternatives, benefits, risks, and consequences refuses: transfer. 04/03 23:05 Order name: CBC with Diff; Complete Time: 23:40 [facility] 04/03 23:05 Order name: BMP; Complete Time: 00:01 [facility] 04/03 23:05 Order name: CT Soft Tissue Neck W/contr [facility] 04/03 23:05 Order name: CT Head Brain wo Cont [facility] 04/03 23:05 Order name: Saline Lock; Complete Time: 23:34 [facility] Administered Medications: 04/03 23:32 Drug: morphine 4 mg {Note: RASS +0.} Route: IVP; Site: right antecubital; b 04/04 01:27 Follow up: Response: No adverse reaction; Marked relief of symptoms; Pain is decreased em 04/03 23:32 Drug: Zofran (Ondansetron) 4 mg Route: IVP; Site: right antecubital; zb 04/04 01:27 Follow up: Response: No adverse reaction em 01:27 Drug: Rocephin (cefTRIAXone) 2 grams Route: IV; Rate: calculated rate; Site: right em antecubital; 01:39 Follow up: Response: No adverse reaction; IV Status: Completed infusion; IV Intake: 20mlem Disposition: 06:27 Co-signature as Attending Physician, Melchor Pagan MD. [email or web address] Disposition Summary: 04/04/21 01:14 Discharge Ordered Location: Home [facility] Condition: Stable jm Diagnosis - Acute mastoiditis [facility] Followup: [facility] - With: Sue Farmer MD - When: 2 - 3 days - Reason: Recheck today's complaints, Continuance of care, Re-evaluation by your physician Discharge Instructions: - Discharge Summary Sheet [facility] - Mastoiditis, Pediatric [facility] Forms: - Medication Reconciliation Form [facility] - Thank You Letter [facility] - Antibiotic Education [facility] - Prescription Opioid Use [facility] Prescriptions: - acetaminophen-codeine 300-15 mg Oral tablet - take 1 tablet by ORAL route every 4 hours; 12 tablet; Refills: 0, Product [facility] Selection Permitted - Augmentin 875-125 mg Oral Tablet - take 1 tablet by ORAL route every 12 hours for 10 days; 20 tablet; Refills: 0, [facility] Product Selection Permitted Signatures: Dispatcher [employer] Lito Lopez PA PA David Davalos RN Aria Rausch RN RN vg1 Melchor Pagan MD MD [facility] Teresita Joseph RN RN zb Corrections: (The following items were deleted from the chart) 04/03 21:13 21:12 PMHx: ADD/ADHD; vg1 vg1 21:13 21:12 PMHx: Hypertension; vg1 vg1
[2021-04-04] MEDS ORDERED: CEFTRIAXONE/SWI 1gm 2 GM/20 ML SYR ONE (01:42)
[2021-04-04] MEDS ORDERED: NA CHLORIDE 0.9% 250 ML ONE (01:42)
[2021-04-04 01:46] VITALS: TEMP 97.9
[2021-04-04 01:50] VITALS: BP 139/81; O2SAT 100
--- NOTE | 2021-04-04 22:35 | RAD REPORT ---
EXAM DESCRIPTION: CT - Soft Tissue Neck W/Contr - 04/04/2021 6:39 am CLINICAL HISTORY: 55 years, Male, left sided neck pain COMPARISON: None. TECHNIQUE: Multiple transaxial tomograms of the neck were obtained from the base of the skull to the pulmonary apex utilizing 3 mm slice thickness at 3 mm interval reconstruction after the administrati on of 100 cc of IV contrast. In addition coronal and sagittal spinal reformats were generated and rev iewed. This exam was performed according to our departmental dose-optimization protocol, which includes auto mated exposure control, adjustment of the mA and/or kV according to patient size and/or use of iterat keya reconstruction technique. Skull base demonstrate to be normal. Nasopharynx, oropharynx, hypopharynx is normal. There is tasha l appearance of the mucosa with no evidence for significant abnormal enhancement. The base of the ton jose, epiglottis, vallecula demonstrate to be within normal limits. Vocal cords demonstrate to be unre markable. Parapharyngeal space demonstrate to be normal. Parotid and submandibular glands are normal. There is no evidence for significant lymphadenopathy. Tiny nondiagnostic lymph nodes are seen with in the posterior neck. Paravertebral elements are grossly unremarkable. The thyroid gland, proxim al trachea and lung apices demonstrate to be within normal limits. There is normal appearance of the vascular structures. Cervical spine demonstrate minimal anterior spondylosis at C3/C4. IMPRESSION: Unremarkable CT soft tissue neck. No significant abnormal mucosal enhancing lesions and/ or cervical lymphadenopathy. Electronically signed by: Eliecer Patton MD 04/04/2021 12:55 AM CDT Due to temporary technical issues with the PACS/Fluency reporting system, reports are being signed by the in house radiologists without review as a courtesy to insure prompt reporting. The interpreting radiologist is fully responsible for the content of the report.
--- NOTE | 2021-04-04 22:36 | RAD REPORT ---
EXAM DESCRIPTION: CT - Head Brain Wo Cont - 04/04/2021 6:39 am CLINICAL HISTORY: 55 years, Male, HEADACHE COMPARISON: None. FINDINGS: Multiple transaxial tomograms of the brain were obtained from the base of the skull to the vertex without contrast. 2-D multiplanar reformats and the coronal and sagittal plane were performed and reviewed. This exam was performed according to our departmental dose-optimization protocol, which includes auto mated exposure control, adjustment of the mA and/or kV according to patient size and/or use of iterat keya reconstruction technique. Brain parenchyma as well as the zhao and white matter differentiation demonstrate to be unremarkable. There is no midline shift and/or mass effect. There is no evidence for acute hemorrhage. Lateral v entricles and cisterns displace normal appearance. No intra or extra axial fluid collections were s een. The calvarium is intact with no evidence for fracture. The visualized portions of the paranasal sinuses and orbits demonstrate to be clear. There is poorly pneumatized left mastoid air cells perhap s suggesting mastoiditis IMPRESSION: No evidence for acute hemorrhage, mass effect or midline shift. Poorly pneumatized left mastoid air cells perhaps suggesting left mastoiditis. Electronically signed by: Eliecer Patton MD 04/04/2021 12:57 AM CDT Due to temporary technical issues with the PACS/Fluency reporting system, reports are being signed by the in house radiologists without review as a courtesy to insure prompt reporting. The interpreting radiologist is fully responsible for the content of the report.
== END 2021-04-04 01:39 | disposition home or self-care (01) ==
LOC: ER 20:56
DX: H70.002 Acute mastoiditis without complications, left ear (principal); E11.9 Type 2 diabetes mellitus without complications; Z91.040 Latex allergy status; Z91.048 Other nonmedicinal substance allergy status
CPT/HCPCS: 85025; 80048; 36415; 70450; 70491; 96375; 96374; 99284; Q9967; J0696; J7050; J2405